=== PATIENT | male | born 1995 ===

== ENCOUNTER 2019-12-15 15:37 | Emergency (ER) | payer OTHER ==
[~2019-12-15] VITALS: Ht 182.9 cm; Wt 84.0 kg
[2019-12-15 15:50] VITALS: BP 105/69
[2019-12-15] MEDS ORDERED: ibuprofen 200mg tablet PO ONE (16:35)
[2019-12-15] MEDS ORDERED: TRIA15CR61 TOP (16:44)
== END 2019-12-15 17:30 | disposition home or self-care (01) ==
LOC: ER 15:38
DX: M79.671 Pain in right foot (principal); L30.9 Dermatitis, unspecified; Z79.899 Other long term (current) drug therapy
CPT/HCPCS: 73630; 73650; 99284

== ENCOUNTER 2024-06-12 16:31 | Emergency (ER) | payer SELFPAY ==
[~2024-06-12] VITALS: Ht 182.9 cm; Wt 70.5 kg
[2024-06-12 18:10] VITALS: BP 126/72; PULSE 82; RESP 14; TEMP 98.2; O2SAT 99
== END 2024-06-12 18:15 | disposition home or self-care (01) ==
LOC: ER 16:32
DX: S80.12XA Contusion of left lower leg, initial encounter (principal); Y08.02XA Assault by strike by baseball bat, initial encounter; Y93.89 Activity, other specified; Y92.89 Other specified places as the place of occurrence of the external cause; Y99.8 Other external cause status
CPT/HCPCS: 73590; 99283